=== PATIENT | female | born 1945 ===

== ENCOUNTER 2024-05-22 15:21 | Outpatient (BNV) | payer MEDICARE, MEDICAID, SELFPAY | END 2024-05-24 17:14 | PROVIDERS: Admitting Provider Student in an Organized Health Care Education/Training Program; Emergency Provider Emergency Medicine; PCP Family Medicine; Visit Provider Nuclear Medicine | DX: R18.8 Other ascites (principal) | CPT/HCPCS: 93975 ==

== ENCOUNTER 2024-05-22 15:21 | Outpatient (BNV) | payer MEDICARE, MEDICAID, SELFPAY | END 2024-05-23 09:10 | PROVIDERS: Admitting Provider Student in an Organized Health Care Education/Training Program; Emergency Provider Emergency Medicine; PCP Family Medicine; Visit Provider Radiology Diagnostic Radiology | DX: K21.9 Gastro-esophageal reflux disease without esophagitis (principal); R09.02 Hypoxemia | CPT/HCPCS: 71045 ==

== ENCOUNTER 2024-05-22 15:21 | Outpatient (BNV) | payer MEDICARE, MEDICAID, SELFPAY | END 2024-05-27 17:55 | PROVIDERS: Admitting Provider Student in an Organized Health Care Education/Training Program; Emergency Provider Emergency Medicine; PCP Family Medicine; Visit Provider Radiology Diagnostic Radiology | DX: J18.9 Pneumonia, unspecified organism (principal) | CPT/HCPCS: 71046 ==